=== PATIENT | female | born 1960 | race Caucasian/White ===

== ENCOUNTER 2017-04-26 13:12 | Observation (INO) | payer OTHER ==
[2017-04-26] VITALS (7 sets, daily range): BP systolic 140–159; BP diastolic 68–95
[~2017-04-26] VITALS: Ht 154.9 cm; Wt 76.8 kg
[~2017-04-26 13:12] MED LIST: AMARYL 2MG TABLE2 MG PO; AMOXIL500 MG PO; ASPIRIN 81MG TA81 MG PO; CARVEDILOL6.25 MG PO; EFFIENT10 M2 PO; ISOSORBIDE MONO30 MG PO; LEVAQUIN500 MG PO; LIPITOR40 M1 PO; LISINOPRIL 5MG T5 MG PO; METFORMIN500 MG PO; METOPROLOL50 MG PO; NOMEDS XX; PERCOCET 325 MG1 TA4 PO; PRAVASTATIN PO; PREDNISONE 20MG20 MG PO; PROTONIX 40MG T40 MG PO; VISTARIL25 MG PO; XIGDUO PO; [UNRECOGNIZED DRUG - REMARK] PO
[2017-04-26] MEDS ORDERED: METOPROLOL SUCC25 M2 PO (13:19)
[2017-04-26] MEDS ORDERED: LOSARTAN POTASS25 MG PO (13:19)
--- OUTSIDE RECORDS SUMMARY | 2017-04-26 13:22 | External Medical Summary Rpt ---
Author Author , KRISHNA KELLER Address Unknown Phone [email or web address] Care Team Providers Care Coordinator Skill Training Program Name Role Phone Lupe Garcia MD, Unavailable Unavailable Lupe Garcia MD Purpose Continuity of Care Document - 07-12-2013 through 2016 Problems Code Diagnosis DOS Provider Status 250.00 250.00 DIAB 07-12-2013 [facility], TYPE Hospital II OR UNSPEC TYPE, NOT UNCNTRLD 305.1 305.1 07-12-2013 [place] TOBACCO USE [facility] 401.9 401.9 07-12-2013 [place] HYPERTENSIO [facility] N NOS [facility] [id number] CHR 07-12-2013 [place] AIRWAY [facility] OBSTRUCT [facility] NEC 692.9 692.9 07-12-2013 [place] DERMATITIS [facility] V58.69 V58.69 OTH 07-12-2013 [place] MED,LT,[facility] ENT USE [facility] I21.3 ST ELEVATION (STEMI) MYOCARDIAL INFARCTION OF UNSP SITE Allergies, Adverse Reactions, Alerts Type Drug Allergy Food Allergy Adverse Reaction to Substance Substance Reaction Severity Bee Venom Unknown Mild CHOCOLATE (FOOD) UNKNOWN Unknown Medications Na ND Rx Da Fi Fi Am Da Di Ph RX Ph St me C No te ll ll ou ys ag ar # ys at rm s nt no ma ic us Or Da si cy ia de te s n re d PA 00 11 0 No ED 05 -0 NI 40 3- Lo SO 01 20 ng NE 82 13 er 0 20 Ac ti MG ve TA BL ET Vital Signs 07-12-2013 21:13 Name Value Interpretat Reference Comment ion Range Body 98.5 [degF] Temperature BP 90 mm[Hg] Diastolic BP Systolic 161 mm[Hg] Heart 83 /min Rate/Pulse O2% 95 % Respiratory 20 /min Rate 07-12-2013 20:05 Name Value Interpretat Reference Comment ion Range Body 98.2 [degF] Temperature BP 87 mm[Hg] Diastolic BP Systolic 149 mm[Hg] Heart 91 /min Rate/Pulse O2% 94 % Respiratory 20 /min Rate Results Labs Lab Lab Date Result Refere Interp Status Commen Order Detail nces retati t Range on Hemoglobin A1c in Blood (03-20-2017 13:15) Hemoglo 11.1 % 0.0% High complet bin A1c 017 - ed in 13:15 7.0% Blood Encounters Encounter Start End Date Code Location Performer Type Date Emergency CAMERON Garcia MD (ER) 3 19:42 3 21:17 [facility]
--- OUTSIDE RECORDS SUMMARY | 2017-04-26 13:22 | External Medical Summary Rpt ---
Author Author , KRISHNA KELLER Address Unknown Phone [email or web address] Team Providers Care Postpartum Rn Name Role Phone Lupe Garcia MD, Unavailable Unavailable Lupe Garcia MD Purpose Continuity of Care Document - 07-12-2013 through 2016 Problems Code Diagnosis DOS Provider Status 250.00 250.00 DIAB 07-12-2013 [facility], TYPE Hospital II OR UNSPEC TYPE, NOT UNCNTRLD 305.1 305.1 07-12-2013 [place] TOBACCO USE [facility] 401.9 401.9 07-12-2013 [place] HYPERTENSIO [facility] N NOS [facility] [id number] CHR 07-12-2013 [place] AIRWAY [facility] OBSTRUCT [facility] NEC 692.9 692.9 07-12-2013 [place] DERMATITIS [facility] V58.69 V58.69 OTH 07-12-2013 [place] MED,LT,[facility] ENT USE [facility] I21.3 ST ELEVATION (STEMI) MYOCARDIAL INFARCTION [...] ia de te s n re d NV 00 11 0 No ED 05 -0 [...] Garcia MD (ER) 3 19:42 3 21:17 [facility]
--- OUTSIDE RECORDS SUMMARY | 2017-04-26 13:23 | External Medical Summary Rpt ---
Author Author [employer], [employer] Organization [employer] Address Unknown Phone Unavailable Results Glucose [Mass/volume] in Capillary blood by Glucometer Observa Value Referen Units Interpr Notes Date tion ce etation Range Glucose 70 - 110 mg/dl High No Mar 14 [Mass/vol informati 2017 ume] in on in 11:42 AM Capillary source blood by data Glucomete r Glucose [Mass/volume] in Capillary blood by Glucometer Observa Value Referen Units Interpr Notes Date ti etation Range Glucose 70 - 110 mg/dl High No Mar 22 [Mass/vol informati 2016 6:11 ume] in on in AM Capillary source blood by data Glucomete r Glucose [Mass/volume] in Capillary blood by Glucometer Observa Value Referen Units Interpr Notes Date ti etation Range Glucose 70 - 110 mg/dl High No Mar 21 [Mass/vol informati 2016 7:57 ume] in on in PM Capillary source blood by data Glucomete r Glucose [Mass/volume] in Capillary blood by Glucometer Observa Value Referen Units Interpr Notes Date ti etation Range Glucose 70 - 110 mg/dl High No Mar 21 [Mass/vol informati 2017 5:32 ume] in on in PM Capillary source blood by data Glucomete r Glucose [Mass/volume] in Capillary blood by Glucometer Observa Value Referen Units Interpr Notes Date ti ce etation Range Glucose 70 - 110 mg/dl High No Mar 21 [Mass/vol alert informati 2016 ume] in on in 12:22 PM Capillary source blood by data Glucomete r Glucose [Mass/volume] in Capillary blood by Glucometer Observa Value Referen Units Interpr Notes Date ti etation Range Glucose 70 - 110 mg/dl High No Mar 21 [Mass/vol informati 2017 6:31 ume] in on in AM Capillary source blood by data Glucomete r Basic metabolic panel in Blood Observa Value Referen Units Interpr Notes Date ti ce etation Range Urea 7 - 18 mg/dL No No Mar 21 nitrogen informati informati 2016 5:30 [Mass/vol on in on in AM ume] in source source Serum or data data Plasma Calcium 8.5 - mg/dL Normal No Mar 21 [Mass/vol 10.1 informati 2016 5:30 ume] in on in AM Serum or source Plasma data Chloride 98 - 107 mmoL/L Normal No Mar 21 [Moles/vo informati 2016 5:30 lume] in on in AM Serum or source Plasma data Carbon 21.0 - mmoL/L Normal No Mar 21 dioxide, 32.0 informati 2016 5:30 total on in AM [Moles/vo source lume] in data Serum or Plasma Creatinin 0.55 - mg/dL Low No Mar 21 e 1.02 informati 2016 5:30 [Mass/vol on in AM ume] in source Serum or data Plasma Creatinin 50 - 200 ML/MIN No No Mar 21 e renal informati informati 2016 5:30 clearance on in on in AM source source predicted data data by Cockcroft -Gault formula Estimated 59- ML/MIN No REFERENCE Mar 21 informati RANGE: 2017 5:30 glomerula on in >60 AM r source ML/MIN/1. filtratio data 73 SQUARE n rate METERSIf (GF this patient is -A merican, then multiply theresult by 1.210. Glucose 74 - 106 mg/dL High No Mar 21 [Mass/vol informati 2016 5:30 ume] in on in AM Serum or source Plasma data Potassium 3.5 - 5.1 mmoL/L Normal No Mar 21 informati 2016 5:30 [Moles/vo on in AM lume] in source Serum or data Plasma Sodium 136 - 145 mmoL/L Normal No Mar 21 [Moles/vo informati 2016 5:30 lume] in on in AM Serum or source Plasma data Lipid 1996 panel in Serum or Plasma Observa Value Referen Units Interpr Notes Date tion ce etation Range Cholester < 200 mg/dL High No Mar 21 ol informati 2016 5:30 [Moles/vo on in AM lume] in source Unspecifi data ed specimen Cholester 40 - 60 MG/DL Normal No Mar 21 ol in HDL informati 2016 5:30 on in AM [Mass/vol source ume] in data Serum or Plasma Cholester 0 - 130 mg/dL High No Mar 21 ol in LDL informati 2016 5:30 on in AM [Mass/vol source ume] in data Serum or Plasma by calculati on Triglycer 30 - 200 mg/dL Normal No Mar 21 arturo ati 2016 5:30 [Moles/vo on in AM lume] in source Serum or data Plasma Cholester 0 - 40 No Normal No Mar 21 ol in informati informati 2016 5:30 VLDL on in on in AM [Mass/vol source source ume] in data data Serum or Plasma Glucose [Mass/volume] in Capillary blood by Glucometer Observa Value Referen Units Interpr Notes Date tion ce etation Range Glucose 70 - 110 mg/dl High No Mar 20 [Mass/vol alert informati 2016 9:32 ume] in on in PM Capillary source blood by data Glucomete r Glucose [Mass/volume] in Capillary blood by Glucometer Observa Value Referen Units Interpr Notes Date tion ce etation Range Glucose 70 - 110 mg/dl High No Mar 20 [Mass/vol alert informati 2016 5:03 ume] in on in PM Capillary source blood by data Glucomete r Activated clotting time in Blood by Coagulation assay Observa Value Referen Units Interpr Notes Date tion ce etation Range Activated 74 - 125 SEC High No Mar 20 clotting alert informati 2016 2:08 time in on in PM Blood by source Coagulati data on assay Activated clotting time in Blood by Coagulation assay Observa Value Referen Units Interpr Notes Date tion ce etation Range Activated 74 - 125 SEC High No Mar 20 clotting alert informati 2016 1:37 time in on in PM Blood by source Coagulati data on assay INR in Blood by Coagulation assay Observa Value Referen Units Interpr Notes Date tion ce etation Range IS PATIENT ON ANTICOAGULANTS? N PTT RESULTS MUST BE CALLED IF PT ON HEPARIN!!! Y INR in 0.9 - 1.1 No Low INDICATIO Mar 20 Blood by informati N 2016 1:17 Coagulati on in PM on assay source INR data RANGETHER APY FOR DVT, PE, ATRIAL FIB; 2.0 - 3.0PROPHY LAXIS FOR VTETHERAP Y FOR MECHANICA L HEART 2.5 - 3.5VALVE; PREVENTIO N OF SYSTEMICE MBOLISM SECONDARY TO AMI Prothromb 9.4 - SECONDS Normal No Mar 20 in time 11.8 informati 2017 1:17 (PT) in on in PM Platelet source poor data plasma by Coagulati on assay Activated partial thrombplastin time (aPTT) in Platelet poor plasma by Coagulation assay Observa Value Referen Units Interpr Notes Date tion ce etation Range IS PATIENT ON ANTICOAGULANTS? N PTT RESULTS MUST BE CALLED IF PT ON HEPARIN!!! Y Activated 23.6 - SECONDS Low No Mar 20 partial 34.0 informati 2016 1:17 thrombpla on in PM stin time source (aPTT) data in Platelet poor plasma by Coagulati on assay Hemoglobin electrophoresis panel in Blood Observa Value Referen Units Interpr Notes Date ti ce etation Range Hemoglobi 94 - 98 % High No Mar 20 n informati 2016 1:15 A/Hemoglo on in PM bin.total source in Blood data Hemoglobi 0.6 - 2.6 % Low No Mar 20 n F informati 2016 1:15 [Units/vo on in PM lume] in source Blood by data Electroph oresis Hemoglobi 0 - 0 % Normal NORMAL Mar 20 n ADULT 2017 1:15 S/Hemoglo HEMOGLOBI PM bin.total N in Blood PRESENT.E LEVATED HGB A1C NOTED.Per forming site:[place] [id number]: Sherri Hernandez MDFor inquiries , the physician may contactBr anch: Lab: Hemoglobi 0.7 - 3.1 % Normal No Mar 20 n informati 2016 1:15 [Mass/vol on in PM ume] in source Blood data Hemoglobin A1c in Blood Observa Value Referen Units Interpr Notes Date tion ce etation Range 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: Please use blood in lab Hemoglo 11.1 0.0 - % High < 6% Mar 20 bin A1c 7.0 NON-ASAD 2017 in BETIC 1:15 PM Blood LEVEL< 7% CONTROL LED DIABETI C LEVEL> 8% POORLY CONTROL LED DIABETI C LEVEL Cardiac enzymes Observa Value Referen Units Interpr Notes Date tion ce etation Range Creatine 0 - 4.0 U/L Normal No Mar 20 kinase.MB informati 2017 1:15 /Creatine on in PM source kinase.to data christine [Ratio] in Serum or Plasma Creatine 0.0 - 3.6 ng/mL Normal No Mar 20 kinase.MB informati 2017 1:15 on in PM [Mass/vol source ume] in data Serum or Plasma Creatine 26 - 192 U/L Normal No Mar 20 kinase informati 2017 1:15 [Enzymati on in PM c source activity/ data volume] in Serum or Plasma Troponin 0.00 - ng/mL High 0.04 - Mar 20 I.cardiac 0.06 0.49 IS 2017 1:15 AN PM [Mass/vol INDETERMI ume] in NANT Serum or ZONEAnd Plasma can be consisten t with the following diseases: Trauma Criticall y ill patients Ortega >30% TBSACHF Hypothyro idism Amyloidos isHyperte nsion Myocardit is SepsisHyp otension Rhabdomyo lysis Vital exhaust.P ostop surgery Pulmonary embolism CVARenal failure Acute neurologi hetal disease Atrial fib. Comprehensive metabolic 2000 panel in Serum or Plasma Observa Value Referen Units Interpr Notes Date tion ce etation Range Albumin/G 1.1 - 1.8 No Low No Mar 20 lobulin informati informati 2016 1:15 [Mass on in on in PM ratio] in source source Serum or data data Plasma Albumin 3.4 - 5.0 gm/dL Normal No Mar 20 [Mass/vol informati 2017 1:15 ume] in on in PM Serum or source Plasma data Alkaline 46 - 116 U/L High No Mar 20 phosphata informati 2017 1:15 se on in PM [Enzymati source c data activity/ volume] in Serum or Plasma Bilirubin 0.2 - 1.0 mg/dL Normal No Mar 20 .total informati 2016 1:15 [Mass/vol on in PM ume] in source Serum or data Plasma Urea 7 - 18 mg/dL High No Mar 20 nitrogen informati 2016 1:15 [Mass/vol on in PM ume] in source Serum or data Plasma Calcium 8.5 - mg/dL Normal No Mar 20 [Mass/vol 10.1 informati 2016 1:15 ume] in on in PM Serum or source Plasma data Chloride 98 - 107 mmoL/L Normal No Mar 20 [Moles/vo informati 2016 1:15 lume] in on in PM Serum or source Plasma data Carbon 21.0 - mmoL/L Normal No Mar 20 dioxide, 32.0 informati 2016 1:15 total on in PM [Moles/vo source lume] in data Serum or Plasma Creatinin 0.55 - mg/dL Normal No Mar 20 e 1.02 informati 2017 1:15 [Mass/vol on in PM ume] in source Serum or data Plasma Creatinin 50 - 200 ML/MIN Normal No Mar 20 e renal informati 2017 1:15 clearance on in PM source predicted data by Cockcroft -Gault formula Estimated 59- ML/MIN No REFERENCE Mar 20 informati RANGE: 2017 1:15 glomerula on in >60 PM r source ML/MIN/1. filtratio data 73 SQUARE n rate METERSIf (GF this patient is -A merican, then multiply theresult by 1.210. Globulin 1.3 - 3.2 gm/dL High No Mar 20 [Mass/vol informati 2016 1:15 ume] in on in PM Serum source data Glucose 74 - 106 mg/dL High Mar 20 [Mass/vol 2016 1:15 ume] in CRITICAL PM Serum or RESULTS Plasma RESU LTS CALLED TO: ALIE Mike 03/20/17 1402 Karen Wayne eduardo Potassium 3.5 - 5.1 mmoL/L Normal No Mar 20 informati 2016 1:15 [Moles/vo on in PM lume] in source Serum or data Plasma Sodium 136 - 145 mmoL/L Normal No Mar 20 [Moles/vo informati 2016 1:15 lume] in on in PM Serum or source Plasma data Aspartate 15 - 37 U/L Normal No Mar 20 informati 2016 1:15 aminotran on in PM sferase source [Enzymati data c activity/ volume] in Serum or Plasma Alanine 12 - 78 U/L Normal No Mar 20 aminotran informati 2016 1:15 sferase on in PM [Enzymati source c data activity/ volume] in Serum or Plasma Protein 6.4 - 8.2 gm/dL Normal No Mar 20 [Mass/vol informati 2016 1:15 ume] in on in PM Serum or source Plasma data CBC W Auto Differential panel in Blood Observa Value Referen Units Interpr Notes Date tion ce etation Range Basophils 0 - 0.2 K/MM3 Normal No Mar 20 inform2016 1:15 [#/volume on in PM ] in source Blood by data Automated count Basophils 0.1 - 2.0 % Normal No Mar 20 inform2016 1:15 leukocyte on in PM s in source Blood by data Automated count Eosinophi 0.0 - 0.4 K/mm3 Normal No Mar 20 ls ati 2016 1:15 [#/volume on in PM ] in source Blood by data Automated count Eosinophi 0.1 - % Normal No Mar 20 ls/100 12.0 informati 2016 1:15 leukocyte on in PM s in source Blood by data Automated count Granulocy 1.8 - 7.8 K/mm3 Normal No Mar 20 chinmay informati 2016 1:15 [#/volume on in PM ] in source Blood by data Automated count Granulocy 37.0 - % Normal No Mar 20 chinmay/100 80.0 informati 2016 1:15 leukocyte on in PM s in source Blood by data Automated count Hematocri 37.0 - % Normal No Mar 20 t [Volume 47.0 ati 2016 1:15 on in PM Fraction] source of Blood data Hemoglobi 12.2 - g/dL Normal No Mar 20 n 16.2 informati 2016 1:15 [Mass/vol on in PM ume] in source Blood data Lymphocyt 0.7 - 4.5 K/mm3 Normal No Mar 20 es ati 2016 1:15 [#/volume on in PM ] in source Unspecifi data ed specimen by Automated count Lymphocyt 10 - 50.0 % Normal No Mar 20 es ati 2016 1:15 [#/volume on in PM ] in source Unspecifi data ed specimen by Automated count Erythrocy 27 - 31.2 pg Normal No Mar 20 te mean ati 2016 1:15 corpuscul on in PM ar source hemoglobi data n [Entitic mass] Erythrocy 31.8 - g/dl Normal No Mar 20 te mean 35.4 informati 2016 1:15 corpuscul on in PM ar source hemoglobi data n concentra tion [Mass/vol ume] by Automated count Erythrocy 82.2 - fl Normal No Mar 20 te mean 97.8 informati 2016 1:15 corpuscul on in PM ar volume source [Entitic data volume] by Automated count Monocytes 0.1 - 1.0 K/mm3 Normal No Mar 20 informati 2016 1:15 [#/volume on in PM ] in source Blood by data Automated count Monocytes 1.7 - 9.3 % Normal No Mar 20 / informati 2016 1:15 leukocyte on in PM s in source Blood by data Automated count Platelet 7.4 - fl Normal No Mar 20 mean 10.4 informati 2016 1:15 volume on in PM [Entitic source volume] data in Blood by Automated count Platelets 142 - 424 K/mm3 Normal No Mar 20 informati 2016 1:15 [#/volume on in PM ] in source Blood data Erythrocy 4.2 - 5.4 M/mm3 Normal No Mar 20 chinmay informati 2016 1:15 [#/volume on in PM ] in source Amniotic data fluid Erythrocy 11.5 - % Normal No Mar 20 te 17.5 informati 2016 1:15 distribut on in PM ion width source [Entitic data volume] by Automated count Leukocyte 4.8 - K/MM3 Normal No Mar 20 s 10.8 informati 2016 1:15 [#/volume on in PM ] in source Blood data
--- OUTSIDE RECORDS SUMMARY | 2017-04-26 13:23 | External Medical Summary Rpt ---
Author Author , PHUC KELLER Address Unknown Phone [email or web address] Immunization Name Date Rout CVX Reac Dose Comm Prov Is Faci e tion ent ider Refu lity Give sed n Infl 10-2 Intr 150 0.5 Hist WALM No WALM uenz 0-20 amus mL oric ART5 ART5 a 16 cula al 91 91 Quad r Info Inj rmat ion - Sour ce Unsp ecif ied
--- OUTSIDE RECORDS SUMMARY | 2017-04-26 13:23 | External Medical Summary Rpt ---
[...] Blood PRESENT.E LEVATED HGB A1C NOTED.Per forming site:[place] [phone]: Sherri Hernandez MDFor inquiries , the physician may contactBr anch: Lab: Hemoglobi 0.7 - 3.1 % Normal No Mar 20 n informati 2016 1:15 [Mass/vol on in PM ume] in source Blood data Hemoglobin A1c in Blood Observa Value Referen Units Interpr Notes Date tion ce etation Range COMMENTS TO CUTTER FIRST: Please use blood in lab Hemoglo 11.1 [...]
--- OUTSIDE RECORDS SUMMARY | 2017-04-26 13:23 | External Medical Summary Rpt ---
Author Author , PHUC KELLER Address Unknown Phone [email or web address] Immunization Name Date Rout CVX Reac Dose Comm Prov Is Faci e tion ent ider Refu lity Give sed n Infl 10-2 Intr 150 0.5 Hist WALM No WALM uenz 0-20 amus mL oric ART5 ART5 a 16 cula al 91 91 Quad r Info Inj rmat ion - Sour ce Unsp ecif ied
[2017-04-26 13:28] LABS: HEMOGLOBIN 15.4 g/dL (12.2-16.2); LYMPH # 2.8 K/mm3 (0.7-4.5); LYMPH % 38.9 % (10-50.0)
--- NOTE | 2017-04-26 13:34 | Emergency Room Report ---
History of Present Illness Time Seen by MD Maharaj Presenting Problem in Triage Pt arrived:Walked Presenting Problem:PT REPORT A CONSTANT BURNING PAIN ACROSS CHEST THAT BEGAN SUDDENLY THIS MORNING. 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 N Clinical Suspician of Infection? N Mental Status: 1 - Regular (Normal Baseline) Sepsis Risk:Low Sepsis Risk Have you (or family members/close friends) recently traveled outside the [place]? N If Yes, where/when: Have you had exposure to infectious disease within the past month? N TB? Other? Specify: Patient with burning sensation across chest x for about five to six hours; no acute SOB, although has some DOTSON with 46 py tobacco use, quit one month ago s/p stent placement per Dr. Arias. Has HTN, hyperlipidemia, FH mom CABG, diabetes type 2. No cough or fever; no calf pain; takes Effient and aspirin. Pain nonradiating. No nausea, no diaphoresis. Onset while at rest. Very mild pain. ALLERGIES Coded Allergies: CHOCOLATE (FOOD) (HYPER 01/03/16) venom-honey bee (BEE VENOM (HONEY BEE)) (01/03/16) Home Medications Active Scripts ASPIRIN (Aspirin) 81 MG PO DAILY 100 Days Ref 3 Prov: 03/22/17 Prasugrel HCl (Effient) 10 MG PO DAILY 30 Days Ref 5 Prov: 03/22/17 Atorvastatin Calcium (Lipitor 40MG) 40 MG PO QHS 30 Days Ref 5 Prov: 03/22/17 DAPAGLIFLOZIN/METFORMIN HCL (Xigduo XR 5 MG-1,000 MG Tablet) 2 TER PO DAILY #60 TAB Ref 5 Prov: 03/22/17 Reported Medications Losartan Potassium (Losartan 25MG) 25 MG PO DAILY #30 Metoprolol Succinate 25 MG PO DAILY #30 History Medical History General CAD? No Angina: No MA: Yes Hypertension? Yes Hyperlipidemia? No CHF? No DVT? No PE? No COPD? Yes Asthma? No Anemia? No GERD? No Gastric ulcers? No GI Bleed? No Hernia? No Thyroid Problems? No Hypothyroidism? No CVA? No Seizures? No Diabetes? Yes Insulin Dependent: No Insulin Pump: No Home FSBS? Yes Renal Insuffiency? No End Stage Renal Disease? No UTI? No Stones? Yes BPH? No GB Disease: No Nephritic Syndrome? No Asplenia? No Hepatitis? No Sickle Cell Disease? No Arthritis? No Migraines? No Cataracts? No Glaucoma? No MRSA? No HIV? No TB? No Anxiety? No Depression? No Cancer? No More? 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 Social History Smoking Hx Smoker: Former Smoker Tobacco: No Packs/day < 1 Pack Alcohol Alcohol: No Review of Systems All Other Systems Reviewed and Negative Cardiovascular see HPI Physical Exam Vital Signs Vital Signs Date Time Temp Pulse Resp B/P Pulse O2 O2 Flow FiO2 Ox Delivery Rate 04/26 1809 76 20 121/77 100 04/26 1719 77 20 126/70 96 04/26 1649 71 18 121/53 94 04/26 1513 78 18 135/71 97 04/26 1354 18 04/26 1354 75 18 132/73 96 04/26 1313 98.4 99 18 140/68 96 General Appearance normal appearance, WD/WN, no apparent distress Eye Exam - bilateral eye normal exam, bilateral eye PERRL, bilateral eye EOMI Neck normal inspection, non-tender, supple, full range of motion Respiratory Status Yes: trachea midline, chest symmetrical, non tender chest. No: respiratory distress, tender on palpation, use of accessory muscles, pain on inspiration, pain on expiration, productive cough, non productive cough. Lung Sounds bilateral: normal breath sounds, lungs clear. Cardiovascular normal exam, regular rate/rhythm, no peripheral edema, no gallop, no JVD, no murmur, no rub, normal peripheral pulses Gastrointestinal normal bowel sounds, normal exam, non tender, soft, no organomegaly, no guarding, no rebound Extremities non-tender, normal range of motion, normal inspection, no calf tenderness, no pedal edema Strength 5 Upper Ext (L), 5 Upper Ext (R), 5 Lower Ext (L), 5 Lower Ext (R) Neurologic alert, normal exam, no motor/sensory deficits, oriented x 3 Glascow Coma Scale Glascow Coma Scale Response Value EYE response: 4 Spontaneously 4 MOTOR response: 6 OBEYS 6 VERBAL response: 5 Oriented & Converses 5 Total 15 Skin intact, normal color, warm/dry Lymphatic no adenopathy Medical Decision Making LABS/Meds/Orders Pt receiving controlled substance in ED? No Results/Orders Laboratory Tests 04/26/17 1515: Troponin I 0.10 H 04/26/17 1341: Sodium 138, Potassium 4.2, Chloride 102, Carbon Dioxide 28, BUN 19 H, Creatinine 0.8, Estimated Creat Clear 93, Estimated GFR (MDRD) 74, Glucose 222 H, Calcium 9.3, Total Bilirubin 0.2, AST 14 L, ALT 27, Alkaline Phosphatase 116 , Creatine Kinase 64, CK-MB (CK-2) Rel Index 2.8, CK and CKMB Interp 1.8, Troponin I < 0.02, Total Protein 8.2, Albumin 4.1, Globulin 4.1 H, Albumin/ Globulin Ratio 1.0 L 04/26/17 1315: B-Natriuretic Peptide 28, WBC 7.3, RBC 5.39, Hgb 15.4, Hct 47.8 H, MCV 88.6, RDW 15.8, Plt Count 246, Gran % 56.8, Gran # 4.1, Lymphocytes % 38.9, Monocytes % 4.3, Lymphocytes # 2.8, Monocytes # 0.3, PUBS MCHC 32.2, MCH 28.6 Current Medication Orders Sig/Tami Start time Last Medication Dose Route Stop Time Status Admin Aspirin 243 MG ONCE ONE 04/26 1730 DC 04/26 PO 04/26 1731 1717 Aspirin 0 .STK-MED ONE 04/26 1717 DC .ROUTE Nitroglycerin 0 .STK-MED ONE 04/26 1350 DC SL Nitroglycerin 0.4 MG ONCE ONE 04/26 1345 DC 04/26 SL 04/26 1346 1354 Sodium Chloride 10 ML PRN PRN 04/26 1330 AC IV 04/27 1321 Orders Procedure Date/time Status TROPONIN I 04/26 1515 Complete BRAIN NATRIURETIC PEPTIDE 04/26 1344 Complete ELECTROCARDIOGRAM REQUEST 04/26 1321 Active IV SALINE LOCK 04/26 1321 Active KNIFE CHANGER 04/26 1321 Active CBC WITH AUTO DIFF 04/26 1321 Complete CARDIAC ENZYMES 04/26 1321 Complete CHEM 12 PROFILE 04/26 1321 Complete [facility] 04/26 1320 Active CM/EKG CM/EKG EKG rate, NSR, rhythm, no evid. of ischemic chgs, no ectopy, normal QRS, normal UT, normal EKG (1309 EKG read) XRAY/CT/US XRAY/CT/US XRAY chest XR interpretation by reviewed by me (report reviewed) Xray Results normal/NAD, no infiltrates, normal heart size, normal lung inflation brianne Consult MD Physician Consult 1 Consult/PCP Dr. Kauffman at bedside evaluating patient 1800 Time Called 1648 Reason Admission, Cardiology eval/care Physician Consult 2 Consult/PCP Dr. Burns to admit patient as he is on service call/pt has no PCP Time Called [address] Kauffman will take to tag and label cutter; service call MD paged for admission. Progress ED Progress Notes 1 Date 04/26/17 Time 1651 Comment Pain completely gone s/p NTG x 1. Resting comfortably. ED Progress Notes 2 Date 04/26/17 Time 1651 Comment Cardiology paged due to troponin now 0.10. Departure Departure Time of Disposition 1815 Disposition Still a Patient Clinical Impression Primary Impression: Angina at rest Secondary Impressions: Elevated troponin Condition STABLE ED Critical Care Critical Care No
--- NOTE | 2017-04-26 13:34 | Emergency Room Report ---
History of Present Illness Time Seen by MD Maharaj Presenting Problem in Triage Pt arrived:Walked Presenting Problem:PT REPORT A CONSTANT BURNING PAIN ACROSS CHEST THAT BEGAN SUDDENLY THIS MORNING. 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 N Clinical Suspician of Infection? N Mental Status: 1 - Regular (Normal Baseline) Sepsis Risk:Low Sepsis Risk Have you (or family members/close friends) recently traveled outside the [place]? N If Yes, where/when: Have you had exposure to infectious disease within the past month? N TB? Other? Specify: Patient with burning sensation across chest x for about five to six hours; no acute SOB, although has some DOTSON with 46 py tobacco use, quit one month ago s/p stent placement per Dr. Arias. Has HTN, hyperlipidemia, FH mom CABG, diabetes type 2. No cough or fever; no calf pain; takes Effient and aspirin. Pain nonradiating. No nausea, no diaphoresis. Onset while at rest. Very mild pain. ALLERGIES Coded Allergies: CHOCOLATE (FOOD) (HYPER 01/03/16) venom-honey bee (BEE VENOM (HONEY BEE)) (01/03/16) Home Medications Active Scripts ASPIRIN (Aspirin) 81 MG PO DAILY 100 Days Ref 3 Prov: 03/22/17 Prasugrel HCl (Effient) 10 MG PO DAILY 30 Days Ref 5 Prov: 03/22/17 Atorvastatin Calcium (Lipitor 40MG) 40 MG PO QHS 30 Days Ref 5 Prov: 03/22/17 DAPAGLIFLOZIN/METFORMIN HCL (Xigduo XR 5 MG-1,000 MG Tablet) 2 TER PO DAILY #60 TAB Ref 5 Prov: 03/22/17 Reported Medications Losartan Potassium (Losartan 25MG) 25 MG PO DAILY #30 Metoprolol Succinate 25 MG PO DAILY #30 History Medical History General CAD? No Angina: No MO: Yes Hypertension? Yes Hyperlipidemia? No CHF? No DVT? No PE? No COPD? Yes Asthma? No Anemia? No GERD? No Gastric ulcers? No GI Bleed? No Hernia? No Thyroid Problems? No Hypothyroidism? No CVA? No Seizures? No Diabetes? Yes Insulin Dependent: No Insulin Pump: No Home FSBS? Yes Renal Insuffiency? No End Stage Renal Disease? No UTI? No Stones? Yes BPH? No GB Disease: No Nephritic Syndrome? No Asplenia? No Hepatitis? No Sickle Cell Disease? No Arthritis? No Migraines? No Cataracts? No Glaucoma? No MRSA? No HIV? No TB? No Anxiety? No Depression? No Cancer? No More? 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 Smoking Hx Smoker: Former Smoker Tobacco: No Packs/day < 1 Pack Alcohol Alcohol: No Review of Systems All Other Systems Reviewed and Negative Cardiovascular see HPI Physical Exam Vital Signs Vital Signs Date Time Temp Pulse Resp B/P Pulse O2 O2 Flow FiO2 Ox Delivery Rate 04/26 1809 76 20 121/77 100 04/26 1719 77 20 126/70 96 04/26 1649 71 18 121/53 94 04/26 1513 78 18 135/71 97 04/26 1354 18 04/26 1354 75 18 132/73 96 04/26 1313 98.4 99 18 140/68 96 General Appearance normal appearance, WD/WN, no apparent distress Eye Exam - bilateral eye normal exam, bilateral eye PERRL, bilateral eye EOMI Neck normal inspection, non-tender, supple, full range of motion Respiratory Status Yes: trachea midline, chest symmetrical, non tender chest. No: respiratory distress, tender on palpation, use of accessory muscles, pain on inspiration, pain on expiration, productive cough, non productive cough. Lung Sounds bilateral: normal breath sounds, lungs clear. Cardiovascular normal exam, regular rate/rhythm, no peripheral edema, no gallop, no JVD, no murmur, no rub, normal peripheral pulses Gastrointestinal normal bowel sounds, normal exam, non tender, soft, no organomegaly, no guarding, no rebound Extremities non-tender, normal range of motion, normal inspection, no calf tenderness, no pedal edema Strength 5 Upper Ext (L), 5 Upper Ext (R), 5 Lower Ext (L), 5 Lower Ext (R) Neurologic alert, normal exam, no motor/sensory deficits, oriented x 3 Glascow Coma Scale Glascow Coma Scale Response Value EYE response: 4 Spontaneously 4 MOTOR response: 6 OBEYS 6 VERBAL response: 5 Oriented & Converses 5 Total 15 Skin intact, normal color, warm/dry Lymphatic no adenopathy Medical Decision Making LABS/Meds/Orders Pt receiving controlled substance in ED? No Results/Orders Laboratory Tests 04/26/17 1515: Troponin I 0.10 H 04/26/17 1341: Sodium 138, Potassium 4.2, Chloride 102, Carbon Dioxide 28, BUN 19 H, Creatinine 0.8, Estimated Creat Clear 93, Estimated GFR (MDRD) 74, Glucose 222 H, Calcium 9.3, Total Bilirubin 0.2, AST 14 L, ALT 27, Alkaline Phosphatase 116 , Creatine Kinase 64, CK-MB (CK-2) Rel Index 2.8, CK and CKMB Interp 1.8, Troponin I < 0.02, Total Protein 8.2, Albumin 4.1, Globulin 4.1 H, Albumin/ Globulin Ratio 1.0 L 04/26/17 1315: B-Natriuretic Peptide 28, WBC 7.3, RBC 5.39, Hgb 15.4, Hct 47.8 H, MCV 88.6, RDW 15.8, Plt Count 246, Gran % 56.8, Gran # 4.1, Lymphocytes % 38.9, Monocytes % 4.3, Lymphocytes # 2.8, Monocytes # 0.3, PUBS MCHC 32.2, MCH 28.6 Current Medication Orders Sig/Tami Start time Last Medication Dose Route Stop Time Status Admin Aspirin 243 MG ONCE ONE 04/26 1730 DC 04/26 PO 04/26 1731 1717 Aspirin 0 .STK-MED ONE 04/26 1717 DC .ROUTE Nitroglycerin 0 .STK-MED ONE 04/26 1350 DC SL Nitroglycerin 0.4 MG ONCE ONE 04/26 1345 DC 04/26 SL 04/26 1346 1354 Sodium Chloride 10 ML PRN PRN 04/26 1330 AC IV 04/27 1321 Orders Procedure Date/time Status TROPONIN I 04/26 1515 Complete BRAIN NATRIURETIC PEPTIDE 04/26 1344 Complete ELECTROCARDIOGRAM REQUEST 04/26 1321 Active IV SALINE LOCK 04/26 1321 Active ORACLE ERP ARCHITECT 04/26 1321 Active CBC WITH AUTO DIFF 04/26 1321 Complete CARDIAC ENZYMES 04/26 1321 Complete CHEM 12 PROFILE 04/26 1321 [facility] 04/26 1320 Active CM/EKG CM/EKG EKG rate, NSR, rhythm, no evid. of ischemic chgs, no ectopy, normal QRS, normal ND, normal EKG (1309 EKG read) XRAY/CT/US XRAY/CT/US XRAY chest XR interpretation by reviewed by me (report reviewed) Xray Results normal/NAD, no infiltrates, normal heart size, normal lung inflation brianne Consult MD Physician Consult 1 Consult/PCP Dr. Kauffman at bedside evaluating patient 1800 Time Called 1648 Reason Admission, Cardiology eval/care Physician Consult 2 Consult/PCP Dr. Burns to admit patient as he is on service call/pt has no PCP Time Called [address] Kauffman will take to manager cath lab; service call MD paged for admission. Progress ED Progress Notes 1 Date 04/26/17 Time 1651 Comment Pain completely gone s/p NTG x 1. Resting comfortably. ED Progress Notes 2 Date 04/26/17 Time 1651 Comment Cardiology paged due to troponin now 0.10. Departure Departure Time of Disposition 1815 Disposition Still a Patient Clinical Impression Primary Impression: Angina at rest Secondary Impressions: Elevated troponin Condition STABLE ED Critical Care Critical Care No
--- NOTE | 2017-04-26 13:45 | RADIOLOGY REPORT PS360 ---
CHEST(2 VIEWS-NOT PORTABLE) HISTORY: CHEST PAIN ORDERING PHYSICIAN: Claudine Lozada MD PATIENT AGE: 56 years COMPARISON: 03/20/2017 FINDINGS: There is coronary artery stent in place The cardiomediastinal silhouette and pulmonary vascularity are within normal limits. The lungs are clear without infiltrates, suspicious nodules, or pleural effusions. Spondylosis of the thoracic spine. IMPRESSION: No change with no acute finding
[2017-04-26 14:21] LABS: BUN 19 mg/dL (7-18); GFR (ESTIMATED) 74 ML/MIN (59-)
--- OUTSIDE RECORDS SUMMARY | 2017-04-26 19:36 | External Medical Summary Rpt ---
Author Author , PHUC KELLER Address Unknown Phone [email or web address] Immunization Name Date Rout CVX Reac Dose Comm Prov Is Faci e tion ent ider Refu lity Give sed n Infl 10-2 Intr 150 0.5 Hist WALM No WALM uenz 0-20 amus mL oric ART5 ART5 a 16 cula al 91 91 Quad r Info Inj rmat ion - Sour ce Unsp ecif ied
--- OUTSIDE RECORDS SUMMARY | 2017-04-26 19:36 | External Medical Summary Rpt ---
Author Author , KRISHNA KELLER Address Unknown Phone [email or web address] Providers Care Reeling And Tubing Machine Operator Name Role Phone Lupe Garcia MD, Unavailable Unavailable Lupe Garcia MD Purpose Continuity of Care Document - 07-12-2013 through 2016 Problems Code Diagnosis DOS Provider Status 250.00 250.00 DIAB 07-12-2013 [facility], TYPE Hospital II OR UNSPEC TYPE, NOT UNCNTRLD 305.1 305.1 07-12-2013 [place] TOBACCO USE [facility] 401.9 401.9 07-12-2013 [place] HYPERTENSIO [facility] N NOS [facility] [phone] CHR 07-12-2013 [place] AIRWAY [facility] OBSTRUCT [facility] NEC 692.9 692.9 07-12-2013 [place] DERMATITIS [facility] V58.69 V58.69 OTH 07-12-2013 [place] MED,LT,[facility] ENT USE Hospital Allergies, Adverse Reactions, Alerts Type Drug Allergy [...] ia de te s n re d [place] 00 11 0 No ED 05 -0 [...] Garcia MD (ER) 3 19:42 3 21:17 [facility]
--- OUTSIDE RECORDS SUMMARY | 2017-04-26 19:36 | External Medical Summary Rpt ---
Author Author , PHUC KELLER Address Unknown Phone .[employer] Immunization Name Date Rout CVX Reac Dose Comm Prov Is Faci e tion ent ider Refu lity Give sed n Infl 10-2 Intr 150 0.5 Hist W[facility] No WALM uenz 0-20 amus mL oric ART5 ART5 a 16 cula al 91 91 Quad r Info Inj rmat ion - Sour ce Unsp ecif ied
--- OUTSIDE RECORDS SUMMARY | 2017-04-26 19:36 | External Medical Summary Rpt ---
Author Author , KRISHNA KELLER Address Unknown Phone [email or web address] Care Team Providers Care Warehouser Name Role Phone Lupe Garcia MD, Unavailable Unavailable Lupe Garcia MD Purpose Continuity of Care Document - 07-12-2013 through 2016 Problems Code Diagnosis DOS Provider Status 250.00 250.00 DIAB 07-12-2013 [facility], TYPE Hospital II OR UNSPEC TYPE, NOT UNCNTRLD 305.1 305.1 07-12-2013 [place] TOBACCO USE [facility] 401.9 401.9 07-12-2013 [place] HYPERTENSIO [facility] N NOS [facility] 496 496 CHR 07-12-2013 [place] AIRWAY [facility] OBSTRUCT [facility] NEC 692.9 692.9 07-12-2013 [place] DERMATITIS [facility] V58.69 V58.69 OTH 07-12-2013 [place] MED,LT,[facility] ENT USE Hospital Allergies, Adverse Reactions, [...] ia de te s n re d [place] 00 11 0 No ED 05 -0 [...] Garcia MD (ER) 3 19:42 3 21:17 [facility]
--- OUTSIDE RECORDS SUMMARY | 2017-04-26 19:47 | External Medical Summary Rpt ---
Author Author KRISHNA Lopez, [employer] Organization [employer] Address Unknown Phone Unavailable Results Troponin I.cardiac [Mass/volume] in Serum or Plasma Observa Value Referen Units Interpr Notes Date tion ce etation Range Troponin 0.00 - ng/mL High 0.04 - Apr 26 I.cardiac 0.06 0.49 IS 2017 3:15 AN PM [Mass/vol INDETERMI ume] in NANT Serum or ZONEAnd Plasma can be consisten t with the following diseases: Trauma Criticall y ill patients Ortega >30% TBSACHF Hypothyro idism Amyloidos isHyperte nsion Myocardit is SepsisHyp otension Rhabdomyo lysis Vital exhaust.P ostop surgery Pulmonary embolism CVARenal failure Acute neurologi hetal disease Atrial fib. Natriutietic peptide B [Mass/volume] in Serum or Plasma Observa Value Referen Units Interpr Notes Date tion ce etation Range Natriutie 0 - 100 pg/mL Normal No Apr 26 tic informati 2016 1:15 peptide B on in PM source [Mass/vol data ume] in Serum or Plasma CBC W Auto Differential panel in Blood Observa Value Referen Units Interpr Notes Date tion ce etation Range Granulocy 1.8 - 7.8 K/mm3 Normal No Apr 26 chinmay informati 2016 1:15 [#/volume on in PM ] in source Blood by data Automated count Granulocy 37.0 - % Normal No Apr 26 chinmay/100 80.0 informati 2016 1:15 leukocyte on in PM s in source Blood by data Automated count Hematocri 37.0 - % High No Apr 26 t [Volume 47.0 informati 2016 1:15 on in PM Fraction] source of Blood data Hemoglobi 12.2 - g/dL Normal No Apr 26 n 16.2 informati 2016 1:15 [Mass/vol on in PM ume] in source Blood data Lymphocyt 0.7 - 4.5 K/mm3 Normal No Apr 26 es informati 2016 1:15 [#/volume on in PM ] in source Unspecifi data ed specimen by Automated count Lymphocyt 10 - 50.0 % Normal No Apr 26 es informati 2016 1:15 [#/volume on in PM ] in source Unspecifi data ed specimen by Automated count Erythrocy 27 - 31.2 pg Normal No Apr 26 te mean informati 2016 1:15 corpuscul on in PM ar source hemoglobi data n [Entitic mass] Erythrocy 31.8 - g/dl Normal No Apr 26 te mean 35.4 informati 2016 1:15 corpuscul on in PM ar source hemoglobi data n concentra tion [Mass/vol ume] by Automated count Erythrocy 82.2 - fL Normal No Apr 26 te mean 97.8 informati 2016 1:15 corpuscul on in PM ar volume source [Entitic data volume] by Automated count Monocytes 0.1 - 1.0 K/mm3 Normal No Apr 26 informati 2016 1:15 [#/volume on in PM ] in source Blood by data Automated count Monocytes 1.7 - 9.3 % Normal No Apr 26 /100 informati 2016 1:15 leukocyte on in PM s in source Blood by data Automated count Platelets 142 - 424 K/mm3 Normal No Apr 26 informati 2016 1:15 [#/volume on in PM ] in source Blood data Erythrocy 4.2 - 5.4 M/mm3 Normal No Apr 26 chinmay informati 2016 1:15 [#/volume on in PM ] in source Amniotic data fluid Erythrocy 11.5 - % Normal No Apr 26 te 17.5 informati 2016 1:15 distribut on in PM ion width source [Entitic data volume] by Automated count Leukocyte 4.8 - K/mm3 Normal No Apr 26 s 10.8 informati 2016 1:15 [#/volume on in PM ] in source Blood data Glucose [Mass/volume] in Capillary blood by Glucometer Observa Value Referen Units Interpr Notes Date tion ce etation Range Glucose 70 - 110 mg/dl High No Mar 22 [Mass/vol informati 2016 ume] in on in 11:42 AM Capillary source blood by data Glucomete r Glucose [Mass/volume] in Capillary blood by Glucometer Observa Value Referen Units Interpr Notes Date tion ce etation Range Glucose 70 - 110 mg/dl High No Mar 22 [Mass/vol informati 2017 6:11 ume] in on in AM Capillary source blood by data Glucomete r Glucose [Mass/volume] in Capillary blood by Glucometer Observa Value Referen Units Interpr Notes Date tion ce etation Range Glucose 70 - 110 mg/dl High No Mar 21 [Mass/vol informati 2017 7:57 ume] in on in PM Capillary source blood by data Glucomete r Glucose [Mass/volume] in Capillary blood by Glucometer Observa Value Referen Units Interpr Notes Date tion ce etation Range Glucose 70 - 110 mg/dl High No Mar 21 [Mass/vol informati 2016 5:32 ume] in on in PM Capillary source blood by data Glucomete r Glucose [Mass/volume] in Capillary blood by Glucometer Observa Value Referen Units Interpr Notes Date tion ce etation Range Glucose 70 - 110 mg/dl High No Mar 21 [Mass/vol alert informati 2017 ume] in on in 12:22 PM Capillary [...] No No Mar 21 nitrogen informati informati 2017 5:30 [Mass/vol on in on in AM ume] in source source Serum or data data Plasma Calcium 8.5 - mg/dL Normal No Mar 21 [Mass/vol 10.1 informati 2016 5:30 ume] in on in AM Serum or source Plasma data Chloride 98 - 107 mmoL/L Normal No Mar 21 [Moles/vo informati 2017 5:30 lume] in on in AM Serum or source Plasma data Carbon 21.0 - mmoL/L Normal No Mar 21 dioxide, 32.0 informati 2017 5:30 total on in AM [Moles/vo source lume] in data Serum or Plasma Creatinin 0.55 - mg/dL Low No Mar 21 e 1.02 informati 2017 5:30 [Mass/vol on in AM ume] in [...] 200 mg/dL Normal No Mar 21 arturo informati 2016 5:30 [Moles/vo on in AM [...] High No Mar 20 [Mass/vol alert informati 2017 9:32 ume] in on in PM Capillary source blood by data Glucomete r Glucose [Mass/volume] in Capillary blood by Glucometer Observa Value Referen Units Interpr Notes Date tion ce etation Range Glucose 70 - 110 mg/dl High No Mar 20 [Mass/vol alert informati 2017 5:03 ume] in on in PM Capillary [...] Interpr Notes Date ti ce etation Range Activated 74 - 125 SEC High No Mar 20 clotting alert informati 2016 1:37 time in on in PM Blood by source Coagulati data on assay INR in Blood by Coagulation assay Observa Value Referen Units Interpr Notes Date ti ce etation Range IS PATIENT ON ANTICOAGULANTS? [...] No Mar 20 in time 11.8 informati 2016 1:17 (PT) in on in PM Platelet source poor data plasma by Coagulati on assay Activated partial thrombplastin time (aPTT) in Platelet poor plasma by Coagulation assay Observa Value Referen Units Interpr Notes Date ti etation Range IS PATIENT ON ANTICOAGULANTS? 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: Please use blood in lab [...] U/L High No Mar 20 phosphata informati 2016 1:15 se on in PM [Enzymati source [...] Normal No Mar 20 dioxide, 32.0 informati 2017 1:15 total on in PM [Moles/vo source lume] in data Serum or Plasma Creatinin 0.55 - mg/dL Normal No Mar 20 e 1.02 informati 2016 1:15 [Mass/vol on in PM ume] in source Serum or data Plasma Creatinin 50 - 200 ML/MIN Normal No Mar 20 e renal informati 2016 1:15 clearance on in PM source predicted [...] RESULTS Plasma RESU LTS CALLED TO: ALIE Cee 03/20/17 1402 Karen Wayne Potassium 3.5 - 5.1 mmoL/L Normal No Mar 20 informati 2016 1:15 [Moles/vo on in PM lume] in source Serum or data Plasma Sodium 136 - 145 mmoL/L Normal No Mar 20 [Moles/vo informati 2016 1:15 lume] in on in PM Serum or source Plasma data Aspartate 15 - 37 U/L Normal No Mar 20 inform2016 1:15 aminotran on in PM sferase source [...] 0 - 0.2 K/MM3 Normal No Mar 202016 1:15 [#/volume on in PM ] in source Blood by data Automated count Basophils 0.1 - 2.0 % Normal No Mar 20 informati 2016 1:15 leukocyte on in PM [...] 37.0 - % Normal No Mar 20 chinmay100 80.0 informati 2016 1:15 leukocyte on in PM s in source Blood by data Automated count Hematocri 37.0 - % Normal No Mar 20 t [Volume 47.0 informati 2016 1:15 on in PM Fraction] source of Blood data Hemoglobi 12.2 - g/dL Normal No Mar 20 n 16.2 informati 2016 1:15 [Mass/vol on in PM ume] in source Blood data Lymphocyt 0.7 - 4.5 K/mm3 Normal No Mar 20 es informati 2016 1:15 [#/volume on in PM ] in source Unspecifi data ed specimen by Automated count Lymphocyt 10 - 50.0 % Normal No Mar 20 es informati 2016 1:15 [#/volume on in PM ] in source Unspecifi data ed specimen by Automated count Erythrocy 27 - 31.2 pg Normal No Mar 20 te mean informati 2016 1:15 corpuscul on in PM [...] 1.0 K/mm3 Normal No Mar 20 informati 2017 1:15 [#/volume on in PM ] in source Blood by data Automated count Monocytes 1.7 - 9.3 % Normal No Mar 20 /100 informati 2017 1:15 leukocyte on in PM s in source Blood by data Automated count Platelet 7.4 - fl Normal No Mar 20 mean 10.4 informati 2016 1:15 volume on in PM [Entitic source volume] data in Blood by Automated count Platelets 142 - 424 K/mm3 Normal No Mar 20 informati 2017 1:15 [#/volume on in PM ] in source Blood data Erythrocy 4.2 - 5.4 M/mm3 Normal No Mar 20 chinmay informati 2017 1:15 [#/volume on in PM ] in source Amniotic data fluid Erythrocy 11.5 - % Normal No Mar 20 te 17.5 informati 2016 1:15 distribut on in PM ion width source [Entitic data volume] by Automated count Leukocyte 4.8 - K/MM3 Normal No Mar 12 s 10.8 informati 2017 1:15 [#/volume on in PM ] in source Blood data
--- OUTSIDE RECORDS SUMMARY | 2017-04-26 19:47 | External Medical Summary Rpt ---
[...] Blood PRESENT.E LEVATED HGB A1C NOTED.Per forming site:[facility] [place] [phone]: Sherri Hernandez MDFor inquiries , the physician may contactBr anch: Lab: Hemoglobi 0.7 - 3.1 % Normal No Mar 20 n informati 2017 1:15 [Mass/vol on in PM ume] in source Blood data Hemoglobin A1c in Blood Observa Value Referen Units Interpr Notes Date tion ce etation Range COMMENTS TO OFFICE WORKER: Please use blood in lab Hemoglo 11.1 [...]
--- NOTE | 2017-04-26 21:34 | CONSULT NOTE ---
Standard Demographics Patient Demo Date of Consultation: 04/26/17 Referring Provider: Cr Burns MD Reason for Consultation: Chest pain, borderline troponin Problem list Problem list: Chest pain CAD Stents DM HTN Hyperlipidemia COPD History of present illness: History of present illness: Chief complaint: Chest pain HPI: Ms German has known CAD, she had presented about a month ago with STEMI and had stents placed to her proximal and mid LAD. She states that she has had pain off and on ever since then. She describes retrosternal burning, this happened at rest, she had relief with SL NTG, she presented to Er as she was concerned. She was noted to have borderline troponin of 0.1 for her second troponin. She describes pain as being identical to pre stents. She denies orthopnea, edema, PND, syncope. She has noted DOTSON. She quit smoking a month ago Past Medical History: General: Hypertension Yes CVA No Seizures No TB No COPD Yes Asthma No Diabetes Yes Insulin Dependent No Insulin Pump No Angina No HI Yes Hyperlipidemia No Urinary Yes Cancer No Rheumatic H.D. No Ulcers No MRSA No GB Disease No Past Surgical HX: Previous Surgery?Y Hysterect KIDNEY STONE RETRIEVAL CARDIAC STENTS X3 2016 Allergies Coded Allergies: CHOCOLATE (FOOD) (HYPER 01/03/16) venom-honey bee (BEE VENOM (HONEY BEE)) (01/03/16) Home medications: Active Scripts ASPIRIN (Aspirin) 81 MG PO DAILY 100 Days Ref 3 Prov: 03/22/17 Prasugrel HCl (Effient) 10 MG PO DAILY 30 Days Ref 5 Prov: 03/22/17 Atorvastatin Calcium (Lipitor 40MG) 40 MG PO QHS 30 Days Ref 5 Prov: 03/22/17 DAPAGLIFLOZIN/METFORMIN HCL (Xigduo XR 5 MG-1,000 MG Tablet) 2 TER PO DAILY #60 TAB Ref 5 Prov: 03/22/17 Reported Medications Losartan Potassium (Losartan 25MG) 25 MG PO DAILY #30 Metoprolol Succinate 25 MG PO DAILY #30 Immunization HX DT/Tetanus UNKNOWN Flu 2YRSorMore Pneumonia Refuses Social Hx: Smoking HX Tobacco No Packs/day < 1 PACK Alcohol Alcohol: No Hx of Drug Use Drug Use? No Review of systems: Constitutional No: no symptoms reported. Eyes No: no symptoms reported. Ears, Nose, Mouth, Throat No no symptoms reported Respiratory SOB with excertion, SOB at rest. Cardiovascular chest pain Gastrointestinal/Abdominal No other (No hematemesis, lorena) Genitourinary No: hematuria. Musculoskeletal No: joint pain, joint swelling. Skin No: rash. Neurological No: no symptoms reported. Exam: Admission Vital Signs: 1ST Vital Signs Result Date Time Pulse Ox 96 04/26 1313 B/P 140/68 04/26 1313 Temp 98.4 04/26 1313 Pulse 99 04/26 1313 Resp 18 04/26 1313 Last Vital Signs: Vital Signs Result Date Time Resp 18 04/26 2100 Pulse Ox 98 04/26 1919 B/P 167/98 04/26 1919 Temp 98.4 04/26 1919 Pulse 87 04/26 1919 Exam General appearance: normal appearance, alert, active Eyes: conjunctiva clear ENT: mucous membranes moist Neck: no carotid bruit, no JVD Cardiovascular: no JVD Respiratory: clear to auscultation ABD: normal exam, non-distended, normal bowel sounds, no rebound, soft, no tenderness, no guarding Extremities: normal exam Musculoskeletal: normal exam Skin: dry, warm Neuro: normal exam Laboratory data: Laboratory Tests 04/26/17 1515: Troponin I 0.10 H 04/26/17 1341: Sodium 138, Potassium 4.2, Chloride 102, Carbon Dioxide 28, BUN 19 H, Creatinine 0.8, Estimated Creat Clear 93, Estimated GFR (MDRD) 74, Glucose 222 H, Calcium 9.3, Total Bilirubin 0.2, AST 14 L, ALT 27, Alkaline Phosphatase 116 , Creatine Kinase 64, CK-MB (CK-2) Rel Index 2.8, CK and CKMB Interp 1.8, Troponin I < 0.02, Total Protein 8.2, Albumin 4.1, Globulin 4.1 H, Albumin/ Globulin Ratio 1.0 L 04/26/17 1315: B-Natriuretic Peptide 28, WBC 7.3, RBC 5.39, Hgb 15.4, Hct 47.8 H, MCV 88.6, RDW 15.8, Plt Count 246, Gran % 56.8, Gran # 4.1, Lymphocytes % 38.9, Monocytes % 4.3, Lymphocytes # 2.8, Monocytes # 0.3, PUBS MCHC 32.2, MCH 28.6 Additional information: Sinus rhythm Plan: Assessment: Unstable angina, ALEKS score 4 - aspirin, risk factors, more than 2 spells, troponin bump DM CAD HTN Hyperlipidemia Recommendations: Offered heart cath, risks d/w pt. Agreeable at [id number]
--- NOTE | 2017-04-26 21:54 | RADIOLOGY REPORT PS360 ---
CARDIAC CATHETERIZATION DATE OF CATHETERIZATION:04/26/2017 9:23 PM PROCEDURES: 1. Left heart catheterization 2. Coronary angiography 3. Left ventriculography 4. FFR interrogation of mid circumflex, deferred PCI for FFR 0.9 5. FFR interrogation of diagonal, PCI to LAD, Diagonal for FFR of 0.80 6. Stent to mid LAD, JOSE ANGEL, stent to diagonal, JOSE ANGEL, successful recross with kissing balloon dilation - INDICATION FOR TEST: 1. Unstable angina, ALEKS score 4 Informed consent was obtained prior to the procedure. COMPLICATIONS: None ESTIMATED BLOOD LOSS: Less than 10 ml. TECHNIQUE: One percent lidocaine was used to anesthetize the right groin. The right femoral artery was accessed via the Seldinger technique. A 4-Danish sheath was placed in the right femoral artery. The JL-4 and JR-4 catheter was also used to perform left heart catheterization and left ventriculography. ANGIOGRAPHIC RESULTS: 1. The left main artery Free of disease 2. The left anterior descending artery Stents noted in proximal and mid LAD, with area of skip across origin of large D1, arising from mid segment. Ostium of D1 has eccentric 60 % stenosis, this was area evaluated by FFR 3. The circumflex artery Non dominant for posterior circulation. Proximal and mid segment have atherosclerotic disease with at its worst 50 % stenosis. OM1 is tortuous, mid segment has area of bridging. 4. The right coronary artery Dominant for posterior circulation, free of disease 5. The CAMPOS ventriculogram reveals Normal LV function 6. The left ventricular end-diastolic pressure 10 mm Hg Intervention Procedure: Sheath upsized to 6 Fr. sheath. EBU 3.5 guide used. Heparin bolus of 70 u/kg administered, ACT documented to be over 200 msec. FFR interrogation of circumflex performed, minimal FFR with adenosine was 0.96. This is not significant. The Verrata FFR wire was then advanced into diagonal and FFR interrogation performed, infusion of adenosine stopped when FFR hit 0.80. Choice PT wire then placed in LAD and Whisper wire in diagonal. Diagonal was ballooned with 2 X 20 mm balloon, with kissing balloon across its os in mid LAD, 3 X 15 mm, NC balloon. I then advanced 2.5 X 12 mm Resolute Yomi stent into diagonal, extending back a hair from its os into LAD, with kissing NC 3 X 15 mm balloon in LAD. This was followed by placement of 3 X 12 mm Resolute Yomi stent in mid LAD across origin of diagonal. I then recrossed into diagonal and did kissing balloon dilation with 2 X 12 mm balloon in diagonal and 3 X 15 mm NC balloon in LAD. Excellent final results, 0 % residual stenosis, ALEKS 3 flow pre and post. Site of access addressed with Angioseal post reprep and change of gloves. IMPRESSION: 1. FFR guided PCI to diagonal, JOSE ANGEL to diagonal, stent to LAD mid segment, kissing balloon dilation post recross 2. Normal LV function. PLAN: 1. Dual antiplatelet therapy X at least one year 2. Aggressive risk factor modification
[2017-04-26 23:03] LABS: URINE BILIRUBIN - DIPSTICK NEGATIVE (NEG); URINE BLOOD NEGATIVE (NEG)
[2017-04-26 23:06] LABS: URINE SQUAMOUS CELLS OCC #/hpf (0-5)
[2017-04-27] VITALS (9 sets, daily range): BP systolic 126–174; BP diastolic 81–89
--- NOTE | 2017-04-27 08:12 | Discharge Summary Standard ---
Demographics: Admit date: 04/26/17 Chief complaint: Chest pain/dyspnea PRIMARY DIAGNOSIS: NON-STEMI Allergies: Coded Allergies: CHOCOLATE (FOOD) (HYPER 01/03/16) venom-honey bee (BEE VENOM (HONEY BEE)) (01/03/16) History of present illness: History of present illness: Chief complaint: Chest pain HPI: Ms German has known CAD, she had presented about a month ago with STEMI and had stents placed to her proximal and mid LAD. She states that she has had pain off and on ever since then. She describes retrosternal burning, this happened at rest, she had relief with SL NTG, she presented to Er as she was concerned. She was noted to have borderline troponin of 0.1 for her second troponin. She describes pain as being identical to pre stents. She denies orthopnea, edema, PND, syncope. She has noted DOTSON. She quit smoking a month ago She has fragmented healthcare, has diabetes but does not keep up with any kind of healthcare maintenance her labs scheduled. 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 Past medical history: Family HX Diabetes Yes CAD Yes Hypertension Yes Hyperlipidemia No Cancer No TB No Immunization HX DT/Tetanus UNKNOWN Flu 2YRSorMore Pneumonia Refuses TB Test in last year No General CAD? No Angina: No CA: Yes Hypertension? Yes Hyperlipidemia? No CHF? No DVT? No PE? No COPD? Yes Asthma? No Anemia? No GERD? No Gastric ulcers? No GI Bleed? No Hernia? No Thyroid Problems? No Hypothyroidism? No CVA? No Seizures? No Diabetes? Yes Insulin Dependent: No Insulin Pump: No Home FSBS? Yes Renal Insuffiency? No UTI? No Stones? Yes BPH? No GB Disease: No Nephritic Syndrome? No Asplenia? No Hepatitis? No Sickle Cell Disease? No Arthritis? No Migraines? No Cataracts? No Glaucoma? No MRSA? No HIV? No TB? No Anxiety? No Depression? No Cancer? No More? No Past Surgical HX Previous Surgery?Y Hysterect KIDNEY STONE RETRIEVAL CARDIAC STENTS X3 2016 Current home meds: Active Scripts ASPIRIN (Aspirin) 81 MG PO DAILY 100 Days Ref 3 Prov: 03/22/17 Prasugrel HCl (Effient) 10 MG PO DAILY 30 Days Ref 5 Prov: 03/22/17 Atorvastatin Calcium (Lipitor 40MG) 40 MG PO QHS 30 Days Ref 5 Prov: 03/22/17 Reported Medications Losartan Potassium (Losartan 25MG) 25 MG PO DAILY #30 Metoprolol Succinate 25 MG PO DAILY #30 Social Hx: Smoking HX Tobacco No Type N/A Packs/day < 1 PACK Alcohol Alcohol: No Hx of Drug Use Drug Use? No Patien't marital status is Patient's support system is fair Comment: Patient has stressors at home, has terminal emphysema and is a total care patient. Review of systems: Constitutional weakness. No: fever, malaise. Respiratory see HPI. Cardiovascular see HPI Gastrointestinal/Abdominal No no symptoms reported Genitourinary No: no symptoms reported. Musculoskeletal No: no symptoms reported. Neurological No: see HPI. Exam: Lab data for last 24 hours: Laboratory Tests 04/27/17 0535: Triglycerides 115, Cholesterol 133, LDL Cholesterol 63.0, VLDL Cholesterol 23.0, HDL Cholesterol 47.0 04/26/17 2200: Urine Color YELLOW, Urine Appearance CLEAR, Urine pH 6.0, Ur Specific [place] <= 1.005, Urine Protein NEGATIVE, Urine Ketones NEGATIVE, Urine Blood NEGATIVE, Urine Nitrate POSITIVE H, Urine Bilirubin NEGATIVE, Urine Urobilinogen 0.2, Ur Leukocyte Esterase NEGATIVE, Urine WBC 3-5, Ur Squamous Epith Cells OCC, Amorphous Sediment TRACE, Urine Glucose 3+ H 04/26/17 1958: POC Activ Clotting Time 381 *H 04/26/17 1515: Troponin I 0.10 H 04/26/17 1341: Sodium 138, Potassium 4.2, Chloride 102, Carbon Dioxide 28, BUN 19 H, Creatinine 0.8, Estimated Creat Clear 93, Estimated GFR (MDRD) 74, Glucose 222 H, Calcium 9.3, Total Bilirubin 0.2, AST 14 L, ALT 27, Alkaline Phosphatase 116 , Creatine Kinase 64, CK-MB (CK-2) Rel Index 2.8, CK and CKMB Interp 1.8, Troponin I < 0.02, Total Protein 8.2, Albumin 4.1, Globulin 4.1 H, Albumin/ Globulin Ratio 1.0 L 04/26/17 1315: B-Natriuretic Peptide 28, WBC 7.3, RBC 5.39, Hgb 15.4, Hct 47.8 H, MCV 88.6, RDW 15.8, Plt Count 246, Gran % 56.8, Gran # 4.1, Lymphocytes % 38.9, Monocytes % 4.3, Lymphocytes # 2.8, Monocytes # 0.3, PUBS MCHC 32.2, MCH 28.6 Microbiology 04/26 2200 URINE CC: Urine Culture - RES Admission vital signs: 1ST Vital Signs Result Date Time Pulse Ox 96 04/26 1313 B/P 140/68 04/26 1313 Temp 98.4 04/26 1313 Pulse 99 04/26 1313 Resp 18 04/26 1313 O2 Delivery ROOM AIR 04/26 2154 Exam General appearance: normal appearance, alert, awake Eyes: normal exam, anicteric ENT: normal exam, mucous membranes moist Neck: normal inspection, non-tender, no carotid bruit, no JVD Cardiovascular: normal exam Respiratory: normal exam, clear to auscultation Extremities: normal exam Musculoskeletal: normal exam Skin: normal exam, intact, normal color Neuro: normal exam, alert, no deficit Hospital Course Hospital Course: Patient was admitted, taken to Senior Audit Manager, interested readers refer to that report. Stent was placed in a diagonal branch. Patient tolerated the procedure well and transferred back to step down unit. She did very nicely with observation overnight in the step down/critical care unit. This morning she is feeling well. She has follow-up scheduled with cardiology clinic from her prior issues in 2 days from today, and we will make an appointment with her in our offices in the next 5 days. We will make sure she has prescriptions for dual antiplatelet therapy. She's already quit smoking. Long discussion about her need to have better control of diabetes and more frequent office visits. Medications Medications: Discharge meds are as noted. Follow up Follow up in office in: 6 DAYS with: SHAWN WHEAT APRN at 0812
== END 2017-04-27 10:00 | disposition home or self-care (01) ==
LOC: ER 13:12 → CATHLAB 19:20 → ER 19:20 → 2ND 19:32 → CATHLAB 19:32 → 2ND 22:16
PROVIDERS: Emergency Medicine; Internal Medicine; Internal Medicine Cardiovascular Disease
PROC: 027035Z Dilation of Coronary Artery, One Artery with Two Drug-eluting Intraluminal Devices, Percutaneous Approach (ICD-10-PCS; 2017-04-26)
PROC: B2111ZZ Fluoroscopy of Multiple Coronary Arteries using Low Osmolar Contrast (ICD-10-PCS; 2017-04-26)
PROC: B2151ZZ Fluoroscopy of Left Heart using Low Osmolar Contrast (ICD-10-PCS; 2017-04-26)
PROC: 4A033BC Measurement of Arterial Pressure, Coronary, Percutaneous Approach (ICD-10-PCS; 2017-04-26)
PROC: 4A023N7 Measurement of Cardiac Sampling and Pressure, Left Heart, Percutaneous Approach (ICD-10-PCS; principal; 2017-04-26 19:00)
DX: I25.110 Atherosclerotic heart disease of native coronary artery with unstable angina pectoris (principal); Z87.891 Personal history of nicotine dependence; R07.9 Chest pain, unspecified; E11.9 Type 2 diabetes mellitus without complications; Z95.5 Presence of coronary angioplasty implant and graft; I25.2 Old myocardial infarction
CPT/HCPCS: C1725; C1760; C1769; C1876; C1894; G0378; J0153; J1644; J2720; Q9967

== ENCOUNTER → 2017-07-04 | Outpatient (CLI) | payer OTHER ==
[~2017-07-04] MED LIST changes: +LOSARTAN POTASS25 MG PO; +METOPROLOL SUCC25 M2 PO
[2017-07-04 15:11] LABS: BUN 27 mg/dL (7-18)
[2017-07-04 15:46] LABS: GFR (ESTIMATED) 65 ML/MIN (59-)
== END ==
LOC: LAB 13:23
PROVIDERS: Internal Medicine Cardiovascular Disease
DX: I10 Essential (primary) hypertension (principal); I42.9 Cardiomyopathy, unspecified; I21.4 Non-ST elevation (NSTEMI) myocardial infarction; I50.30 Unspecified diastolic (congestive) heart failure; E11.9 Type 2 diabetes mellitus without complications; E78.5 Hyperlipidemia, unspecified; G47.33 Obstructive sleep apnea (adult) (pediatric); Z87.891 Personal history of nicotine dependence

== ENCOUNTER → 2017-07-19 | Outpatient (CLI) | payer OTHER ==
--- NOTE | 2017-07-22 21:37 | RADIOLOGY REPORT PS360 ---
PROCEDURE: 2-D M-mode and color Doppler study INDICATIONS FOR THE TEST: Chest pain COPD Heart Murmur Tobacco Smoking Palpitations Fatigue Syncope Edema Hypertension+Diabetes Mellitus+ Rheumatic Fever SOB+DOTSON Obesity Hyperlipidemia+ Family History HD Additional History STENTS, PR X 2 CAD,MIRANDA PATIENT INFORMATION HEIGHT:61 WEIGHT:198 GENDER: Female B/P:130/84 2-D/M-MODE INTERPRETATION: 2-D MEASUREMENTS OBSERVED VALUES IN CMS Right Ventricular Dimension (RVDd) 2.6 Interventricular Septum (Thickness)(IVsd) 1.6 Left Ventricular Internal Dimensions(LVIDd) 2.8 Left Ventricular Posterior Wall (Thickness)(LVPWd) 1.3 Aortic Root 3.2 Aortic Cusp Separation 1.8 Left Atrial Dimensions (LAD) 3.8 2D 1. Technically difficult study because of the patient's factor and poor acoustic windows 2. The left atrium is mildly enlarged, left ventricle is normal size, there is mild concentric left ventricular hypertrophy, visually estimated ejection fraction 55% with no obvious regional wall motion abnormality. 3. The right atrium and right ventricle are mildly enlarged with normal contractility. 4. The aortic valve is minimally thickened and fibrosed. 5. The mitral and tricuspid valve leaflets are grossly normal 6. The pulmonic valve is poorly visualized. 7. No significant pericardial effusion noted. DOPPLER INTERROGATION: Doppler interrogation of the aortic, mitral and tricuspid valvular presence of mild mitral and tricuspid regurgitation, tricuspid regurgitant jet velocity insufficient for calculation of the right ventricular systolic pressure, grade 1 diastolic dysfunction seen without tissue Doppler evidence of raised left atrial pressure. CONCLUSION: 1. Technically difficult study because of the patient's factor and poor acoustic windows. 2. Mildly enlarged left atrium, normal left ventricular size, mild concentric left ventricular hypertrophy present, visually estimated ejection fraction 55% with no obvious regional wall motion abnormality. Grade 1 diastolic dysfunction seen without tissue Doppler evidence of raised left atrial pressure. 3. Mild mitral and tricuspid regurgitation. 4. No significant pericardial effusion noted.
== END ==
LOC: RT 12:39
DX: I25.10 Atherosclerotic heart disease of native coronary artery without angina pectoris (principal); I42.9 Cardiomyopathy, unspecified; G47.33 Obstructive sleep apnea (adult) (pediatric); I10 Essential (primary) hypertension; I27.20 Pulmonary hypertension, unspecified; I50.30 Unspecified diastolic (congestive) heart failure